=== PATIENT | male | born 1955 | race Caucasian/White ===

== ENCOUNTER 2018-12-29 12:48 | Day surgery (SDC) | payer OTHER ==
[2018-12-02 15:02] VITALS: BMI 29.5
[2018-12-29] MEDS ORDERED: PROPOFOL 20 ML ONE ×2 (15:42→16:01)
[2018-12-29] MEDS ORDERED: MIDAZOLAM HCL 2 MG/2 ML SINGLE DOSE VIAL ONE (15:42)
[2018-12-29] MEDS ORDERED: fentaNYL CITRATE 250 MCG/5 ML VIAL ONE (15:42)
[2018-12-29] MEDS ORDERED: ceFAZolin SODIUM 1 GM VIAL ONE (15:51)
[2018-12-29] MEDS ORDERED: BUPIVACAINE HCL 0.25% 125 MG/50 ML VIAL ONE (16:59)
[2018-12-29] MEDS ORDERED: BUPIVACAINE HCL/PF 0.25% (2.5MG/ML) 10 ML VIAL IJ ONE (17:33)
[2018-12-29 18:49] VITALS: TEMP 98.6
[2018-12-29] MEDS ORDERED: oxyCODONE HCL 5 MG TABLET PO PRN (18:55)
[2018-12-29 18:56] VITALS: BP 136/72; PULSE 82
[2018-12-29] MEDS ORDERED: LACTATED RINGERS SOLUTION 1,000 ML IV SCH (19:00)
--- NOTE | 2018-12-30 13:14 | OP ---
DATE OF OPERATION: 12/29/2018 PREOPERATIVE DIAGNOSIS: Left Dupuytren's disease with contracture of small finger metacarpophalangeal joint and proximal interphalangeal joint and ring finger metacarpophalangeal joint. POSTOPERATIVE DIAGNOSIS: Left Dupuytren's disease with contracture of small finger metacarpophalangeal joint and proximal interphalangeal joint and ring finger metacarpophalangeal joint. OPERATIVE PROCEDURE: Left partial palmar and digital fasciectomy with release of contracture of the small finger metacarpophalangeal joint and proximal interphalangeal joint and ring finger metacarpophalangeal joint. SURGEON: Isiah Maguire MD AUTOM[employer]PET[employer] MOLDER: SANDY Back ANESTHESIA: General. COMPLICATIONS: None. ESTIMATED BLOOD LOSS: Minimal. INDICATION FOR PROCEDURE: The patient is a 63-year-old male with the above finding, indicated for operative treatment. Risks, benefits, and alternatives were discussed with the patient at length, and proper informed consent was obtained. Of note, he had developed a ring finger MP contracture which was not there before, and he desired release. PROCEDURE: After proper identification of patient and correct operative site, patient was brought to the operating room and placed supine on the operative table. Prominences were well padded. General anesthesia was provided by the anesthesiologist and adequate for procedure. Left upper extremity was prepped and draped in usual sterile fashion. Well-padded tourniquet was placed as well as a sterile prep. Of note, on preoperative examination, he had a third-degree MP contracture of the small finger with third-degree MP contracture of the ring finger and a 100-degree flexion contracture of the PIP joint to the small finger. Esmarch bandage was used to exsanguinate the left upper extremity, and tourniquet was inflated to 250 mmHg. A longitudinal incision was made in the palm in line with the main cord going to the small finger. The tissue was also elevated off of the cord going into the ring finger. The cord was carefully dissected, taking care to protect neurovascular structures and identify the neurovascular structures. The cord was dissected proximally and dissected free proximally and distally, again taking care to protect the neurovascular structures. Once we got to the small finger, a santhosh-Myriam type incision was made over the cord. The cord in the small finger ended up being a spiral cord and was wrapping around the digital nerve which was carefully protected, and the cord was excised. This allowed extension of the MP joint completely, extension of the PIP to about 10 degrees short of full, and the ring finger MP joint was able to be fully extended. The wounds were then irrigated. A Z-plasty was performed in the palm to break up the longitudinal incision, and the remainder of the incision was repaired with 5-0 fast-absorbing, plain-gut suture as well as Dermabond. Sterile dressings and a splint with the fingers in extension were placed. Once the tourniquet was released, the fingers were found to be well perfused. Patient was then reversed from anesthesia and brought to recovery in stable condition. He tolerated the procedure well. Chandler Garcia, the kindergarten instructional assistant, was integral throughout the procedure. Procedure could not have been performed without a skilled operative kindergarten instructional assistant. Alejandro [id number]
--- NOTE | 2019-01-03 17:31 | PATH ---
Surgical Pathology Report Patient Name: AMANDA COELHO [facility]. Rec. #: [id number] /Age/Gender: 1955 (Age: 63) / M Account: [id number] Location: [facility] Taken: 12/29/2018 Received: 12/29/2018 Reported: 01/03/2019 Physicians: Isiah Maguire M.D. Specimen(s) Received DUPUYTREN DISEASE LEFT SMALL FINGER Clinical History Left small finger Dupuytren's Final Diagnosis SMALL FINGER, LEFT, DUPUYTREN'S DISEASE, PARTIAL PALMAR AND DIGITAL FASCIECTOMY, LEFT HAND, SMALL FINGER DUPUYTREN'S DISEASE WITH RELEASE OF CONTRACTURE: PALMAR FIBROMATOSIS (DUPUYTREN'S DISEASE). Electronically Signed Cristal Ernst M.D. Gross Description Received in formalin labeled "Dupuytren's disease left small finger," is a 3.0 x 1.5 x 1.0 cm aggregate of huynh woodward portions of fibrous tissue. Head Wood Grinder sections are submitted in one cassette. /12/30/2018 [facility]/30/2018
== END 2018-12-29 18:56 | disposition home or self-care (01) ==
LOC: FASU 12:48
PROVIDERS: ATTEND Orthopaedic Surgery Hand Surgery
PROC: 0LN80ZZ Release Left Hand Tendon, Open Approach (ICD-10-PCS; 2018-12-29)
PROC: 0LN80ZZ Release Left Hand Tendon, Open Approach (ICD-10-PCS; 2018-12-29)
PROC: 0LN80ZZ Release Left Hand Tendon, Open Approach (ICD-10-PCS; 2018-12-29)
PROC: 0JNK0ZZ Release Left Hand Subcutaneous Tissue and Fascia, Open Approach (ICD-10-PCS; principal; 2018-12-29 15:59)
DX: M72.0 Palmar fascial fibromatosis [Dupuytren] (principal)
CPT/HCPCS: 82962; 88304-TC; 94760